=== PATIENT | male | born 2000 | race Caucasian/White ===

== ENCOUNTER 2024-01-14 08:56 | Emergency (ER) | payer MEDICAID ==
[~2024-01-14] VITALS: Ht 182.9 cm; Wt 72.7 kg
[2024-01-14] MEDS: normal saline 1000ML IV soln IVB ONE (09:14)
[2024-01-14] MEDS: ondansetron/PF 4mg/2ml inj IV ONE (09:14)
[2024-01-14] MEDS: pantoprazole 40 MG vial IV ONE (09:39)
[2024-01-14 09:41] LABS: BASOPHILS % (AUTO) 0.8 % (0-1); EOSINOPHILS # (AUTO) 0.1 X10'3 (0-0.9); EOSINOPHILS % (AUTO) 1.4 % (0-6); HEMATOCRIT 48.5 % (42.0-52.0); HEMOGLOBIN 16.1 g/dl (14.0-17.9); LYMPHOCYTES # (AUTO) 2.4 X10'3 (1.1-4.8); LYMPHOCYTES % (AUTO) 45.8 % (21-51); MEAN CORPUSCULAR HEMOGLOBIN 29.6 PG (27.0-31.0); MEAN CORPUSCULAR HGB CONC 33.1 g/dL (33.0-36.5); MEAN CORPUSCULAR VOLUME 89.3 FL (78-98); MONOCYTES # (AUTO) 0.4 X10'3 (0-0.9); MONOCYTES % (AUTO) 8.1 % (2-12); NEUTROPHILS # (AUTO) 2.3 X10'3 (1.8-7.7); NEUTROPHILS % (AUTO) 43.9 % (42-75); PLATELET COUNT 211 X10'3 (140-440); RED BLOOD COUNT 5.43 X10'6 (4.70-6.10); RED CELL DISTRIBUTION WIDTH 12.6 % (11.5-14.5); WHITE BLOOD COUNT 5.2 X10'3 (4.5-11.0)
[2024-01-14 09:42] LABS: ALANINE AMINOTRANSFERASE 24 U/L (12-78); ALBUMIN 4.4 G/DL (3.4-5.0); ALBUMIN/GLOBULIN RATIO 1.3 (1.1-1.5); ALKALINE PHOSPHATASE 77 IU/L (46-116); ANION GAP 13 (8-16); ASPARTATE AMINO TRANSFERASE 19 U/L (10-37); BILIRUBIN,DIRECT 0.2 MG/DL (0-0.3); BILIRUBIN,TOTAL 0.7 MG/DL (0.1-1.0); BLOOD UREA NITROGEN 15 MG/DL (7-18); BUN/CREATININE RATIO 15.6 (10.0-20.0); CALCIUM 9.7 MG/DL (8.5-10.1); CHLORIDE 106 MMOL/L (99-107); CREATININE 0.96 MG/DL (0.60-1.10); ETHANOL < 10 MG/DL (<10); GLUCOSE 118 MG/DL (70-104); LIPASE 24 U/L (16-77); POTASSIUM 3.7 MMOL/L (3.5-5.1); SODIUM 141 MMOL/L (135-145); TOTAL CARBON DIOXIDE 21.9 MMOL/L (24-32); TOTAL PROTEIN 7.7 G/DL (6.4-8.2); eCRCL 125 ML/MIN; eGFR > 90 ML/MIN
[2024-01-14] MEDS ORDERED: ONDA-245 PO (10:21)
[2024-01-14] MEDS ORDERED: PANT40TA54 PO (10:21)
[2024-01-14 10:45] VITALS: BP 110/74; PULSE 76; RESP 16; TEMP 97.9; O2SAT 99
== END 2024-01-14 10:55 | disposition home or self-care (01) ==
LOC: ER 08:56
DX: K92.0 Hematemesis (principal); F12.90 Cannabis use, unspecified, uncomplicated
CPT/HCPCS: 36415; 80048; 80076; 80320; 83690; 85025; 96374; 96375; 99284; J2405; J2470; J7030; 96361